=== PATIENT | female | born 1980 ===

== ENCOUNTER 2023-12-04 14:40 | Emergency (ER) | payer SELFPAY ==
[2023-12-04 14:46] VITALS: BP 103/66; PULSE 83; RESP 17; TEMP 36.7; O2SAT 99; BMI 38.0
--- NOTE | 2023-12-04 14:52 | ECG_ITS ---
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 Measurements Intervals [place] Rate: 78 P: 60 NE: 183 QRS: -17 QRSD: 112 T: 76 QT: 392 QTc: 447 Interpretive Statements SINUS RHYTHM LEFT VENTRICULAR HYPERTROPHY AND ST-T CHANGE [VOLTAGE CRITERIA PLUS ST/T ABNORMALITY] No previous ECG available for comparison Electronically Signed On 12-05-2023 7:57:33 CDT by Edmundo Tafoya M.D. [id number]
[2023-12-04 15:32] VITALS: BP 119/86; PULSE 71; O2SAT 98
--- NOTE | 2023-12-04 15:34 | ED_ITS ---
HPI - Dizziness 2 General: Chief Complaint: Dizziness Stated Complaint: fainted Time Seen by Provider: 12/04/23 15:32 History of Present Illness: HPI Narrative: 43-year-old female presents emergency ro om with complaints of [place]. She is Faroese-speaking only initially her daughter translated for us so that we could expedite evaluation we did go back and use the translation service to confirm history and review. Patient [place] she went to [place] up and got lightheaded dizzy her vision blurred after just a few seconds she felt like she may have lost consciousness. Family was nearby and splashed her with water and alcoholic drinks. Patient denies that she was drinking. She has no known history of coronary artery disease she is not diabetic. She does have a murmur and was referred by her physician for an echocardiogram which is upcoming but has not yet been completed. She felt hot and flushed had some blurring of her vision but never had any chest pain she was very briefly short of breath but that has resolved. No recent illness no fever sweats or chills no history of DVT or PE in the past. Associated symptoms: Denies chest pain or chills Review of Systems 2 Const: Denies: fever(s) or chills Card: Denies: chest pain Resp: Denies: dyspnea GI: Denies: abdominal pain : Denies: dysuria, urinary frequency or urinary urgency Musc: Denies: neck pain or back pain Skin/Breast: Denies: rash Physical Exam 2 Const: COMMON NORMALS: no acute distress GENERAL APPEARANCE: cooperative and comfortable ORIENTATION/CONSCIOUSNESS: Yes awake, Yes oriented to person, Yes oriented to place and Yes oriented to time HENMT: COMMON NORMALS: normocephalic, atraumatic and hearing grossly normal bilaterally HEAD & SCALP: normocephalic and atraumatic Resp: COMMON NORMALS: normal respiratory effort, No retractions, No use of accessory muscles and clear to auscultation bilaterally AUSCULTATION: clear to auscultation bilaterally Cardio: COMMON NORMALS: regular rate and regular rhythm RATE: regular rate RHYTHM: regular rhythm HEART SOUNDS: Murmur heart sound present (Grade 4/6 systolic murmur) GI: COMMON NORMALS: Soft to palpation and No hepatosplenomegaly present A USCULTATION: Yes normoactive bowel sounds PALPATION: Yes Soft to palpation, No Tenderness to palpation present (GI), No Guarding due to palpation present (GI) and Yes No hepatosplenomegaly present Extremity: COMMON NORMALS: normal to inspection, capillary refill normal, no clubbing, cyanosis or edema, no calf tenderness and no pedal edema Neuro: SENSORIUM/ORIENTATION: Yes oriented to person, Yes oriented to place and Yes oriented to time Skin: COMMON NORMALS: no rashes or lesions noted GENERAL SKIN EXAM: no rashes or lesions noted Course 2 Vital Signs: Vital signs: Vital Signs Temperature 98.1 F 12/04/23 14:46 Pulse Rate 72 12/04/23 18:23 Respiratory Rate 17 12/04/23 14:46 Blood Pressure 123/69 12/04/23 18:23 Pulse Oximetry 99 12/04/23 18:23 Oxygen Delivery Me thod Room Air 12/04/23 18:12 MDM - Dizziness Medical Decision Making Cardiac enzymes are negative. EKG did not show any acute changes patient is a very impressive murmur on auscultation. Initially she was mildly orthostatic this improved with IV fluids and she is feeling much better. Will discharge patient home. I think her episode is precipitated by volume depletion from being in the sun as well as exacerbated further by anemia and possibly by her murmur suspect from its location sounds and timing that she may have some aortic stenosis. With volume loss this may have increased the likelihood of orthostatic hypotension. It is resolved now that she has had fluids replaced. Avoid heat increase fluid intake follow-up with her primary care physician. She is from [place] and will be returning there soon. Medical Records I reviewed the patient's medical records. Lab Data I reviewed the patient's lab results. 12/04/23 15:48 12/04/23 15:48 Laboratory Results WBC 9.05 10^3/uL (3.29-11.43) 12/04/23 15:48 RBC 3.77 10^6/uL (3.85-5.65) L 12/04/23 15:48 Hgb 9.10 g/dL (11.27-16.99) L 12/04/23 15:48 Hct 29.4 % (36-47) L 12/04/23 15:48 MCV 78.0 fl (85-98) L 12/04/23 15:48 MCH 24.1 pg (27-33) L 12/04/23 15:48 MCHC 31.0 g/dL (30-55) 12/04/23 15:48 RDW 17.8 % (12.1-15.1) H 12/04/23 15:48 Plt Count 257 10^3/cmm (157-399) 12/04/23 15:48 MPV 9.9 fL (7.4-10.4) 12/04/23 15:48 Neut % (Auto) 68.3 % 12/04/23 15:48 Lymph % (Auto) 22.9 % 12/04/23 15:48 [place] % (Auto) 6.3 % 12/04/23 15:48 Eos % (Auto) 1.9 % 12/04/23 15:48 Baso % (Auto) 0.2 % 12/04/23 15:48 Neut # (Auto) 6.18 10^3/uL (1.8-7.7) 12/04/23 15:48 Lymph # (Auto) 2.1 10^3/uL (0.8-4.8) 12/04/23 15:48 [place] # (Auto) 0.6 10^3/uL (0.2-0.9) 12/04/23 15:48 Eos # (Auto) 0.2 10^3/uL (0.0-0.8) 12/04/23 15:48 Baso # (Auto) 0.0 10^3/uL (0.0-0.1) 12/04/23 15:48 Nucleated RBC % (auto) 0 % 12/04/23 15:48 Nucleated RBCs # 0.0 /100WBC 12/04/23 15:48 Sodium 139 mmol/L (136-145) 12/04/23 15:48 Potassium 3.6 mmol/L (3.5-5.1) 12/04/23 15:48 Chloride 101 mmol/L (98-107) 12/04/23 15:48 Carbon Dioxide 26 mmol/L (22-29) 12/04/23 15:48 Anion Gap 15.6 (5-19) 12/04/23 15:48 BUN 13 mg/dL (6-20) 12/04/23 15:48 Creatinine 0.7 mg/dL (0.5-0.9) 12/04/23 15:48 GFR Calculation 90.5 mL/min (90-130) 12/04/23 15:48 Glucose 91 mg/dL (65-115) 12/04/23 15:48 Calculated Osmolality 288 mOsm/kg (285-295) 12/04/23 15:48 Calcium 9.4 mg/dL (8.5-10.5) 12/04/23 15:48 Total Bilirubin 0.2 mg/dL (0.15-1.2) 12/04/23 15:48 AST 12 U/L (0-32) 12/04/23 15:48 ALT 11 U/L (0-33) 12/04/23 15:48 Alkaline Phosphatase 107 U/L (35-105) H 12/04/23 15:48 Troponin T Baseline 9 ng/L (0-10) 12/04/23 15:48 Troponin T 120 Minute 6.70 ng/L (0-10) 12/04/23 17:44 Delta Troponin T -2.30 ABS# (0-10) L 12/04/23 17:44 Total Protein 7.7 g/dL (6.6-8.7) 12/04/23 15:48 Albumin 4.3 g/dL (3.5-5.2) 12/04/23 15:48 Globulin 3.4 g/dL (1.3-4.6) 12/04/23 15:48 Urine Color Yellow (Yellow) 12/04/23 15:48 Urine Appearance Clear (CLEAR) 12/04/23 15:48 Urine pH 6.0 (5-7) 12/04/23 15:48 Ur Specific [place] 1.020 (1.005-1.030) 12/04/23 15:48 Urine Protein 1+ (Negative) A 12/04/23 15:48 Urine Glucose (UA) Negative (Normal) 12/04/23 15:48 Urine Ketones Negative (Negative) 12/04/23 15:48 Urine Blood 2+ (Negative) A 12/04/23 15:48 Urine Nitrate Negative (Negative) 12/04/23 15:48 Urine Bilirubin Negative (Negative) 12/04/23 15:48 Urine Urobilinogen 1.0 mg/dL (Negative) 12/04/23 15:48 Ur Leukocyte Esterase Negative (Negative) 12/04/23 15:48 Urine RBC 6-10 /hpf (0-2) 12/04/23 15:48 Urine WBC 0-5 /hpf (0-5) 12/04/23 15:48 Ur Squamous Epith Cells 0-5 /hpf (0-5) 12/04/23 15:48 Amorphous Sediment Not Reportable 12/04/23 15:48 Urine Bacteria None seen /hpf (NONE) 12/04/23 15:48 Hyaline Casts 16.53 /lpf 12/04/23 15:48 All radiology interpretation(s) finalized by discharge Discharge Plan Discharge Patient Disposition: Home Clinical Impression: Syncope, Anemia, Heart murmur, systolic Condition: Stable Discharge Orders: Discharge ED (Routine); Ordered 12/04/23 Ordered By: Darrell Hobbs Discharge Diet: Usual diet Discharge Activity: Limit activity as instructed Patient Instructions: Opioid Safety, Pain Management Activity Restrictions/Additional Instructions: Thank you for choosing [facility] for your healthcare needs today. It is very important that you follow up as instructed or that you return to the Emergency Department should you have concerns or if your condition changes or worsens in any way. You are seen in the emergency room after an episode of passing out. Based on your labs and the vital signs that we did in the emergency room it appears this is due to syncopal episode from loss of fluid. This is when your blood pressure drops with activity. Blood pressure improved after IV fluids were given. Also noted you are moderately anemic. He should follow-up with your primary care doctor as you had scheduled for the ultrasound of the heart. He can also follow-up on your anemia. Avoid exertional activities increase fluid intake Coding Level of Care Code ED Watch And Clock Maker And Repairer for Miguel Jc
[2023-12-04 15:35] VITALS: BP 104/63; BP 120/72; BP 99/58; PULSE 71; PULSE 87; PULSE 93
[2023-12-04] MEDS: sodium chloride 0.9% 1,000 ML 999 ML IV (15:49)
[2023-12-04 15:56] LABS: Basophils % 0.2 %; Eosinophils # 0.2 10^3/uL (0.0-0.8); Eosinophils % 1.9 %; Hematocrit 29.4 % (36-47); Lymphocytes # 2.1 10^3/uL (0.8-4.8); Lymphocytes % 22.9 %; Mean Corpuscular Hemoglobin 24.1 pg (27-33); Mean Platelet Volume 9.9 fL (7.4-10.4); Monocytes # 0.6 10^3/uL (0.2-0.9); Monocytes % 6.3 %; Neutrophils # 6.18 10^3/uL (1.8-7.7); Neutrophils % 68.3 %; Nucleated Red Blood Cells % 0 %; Platelet Count 257 10^3/cmm (157-399); Red Blood Count 3.77 10^6/uL (3.85-5.65); Red Cell Distribution Width 17.8 % (12.1-15.1); White Blood Count 9.05 10^3/uL (3.29-11.43)
[2023-12-04 16:04] LABS: Charge for UA Resulting for Rev
[2023-12-04 16:07] LABS: Bilirubin Urine Negative (Negative); Blood Urine 2+ (Negative); Glucose Urine UA Negative (Normal); Ketones Urine Negative (Negative); Leukocyte Esterase Urine Negative (Negative); Nitrate Urine Negative (Negative); Protein Urine 1+ (Negative); Urine Appearance Clear (CLEAR); Urine Color Yellow (Yellow)
[2023-12-04 16:12] LABS: Bacteria Urine None Seen /hpf; Squamous Epithelial Cell Urine 0-5 /hpf (0-5); WBC Urine 0-5 /hpf (0-5)
[2023-12-04 16:17] LABS: Alanine Aminotransferase 11 U/L (0-33); Albumin Level 4.3 g/dL (3.5-5.2); Alkaline Phosphatase 107 U/L (35-105); Anion Gap 15.6 (5-19); Aspartate Amino Transferase 12 U/L (0-32); Blood Urea Nitrogen 13 mg/dL (6-20); Calcium 9.4 mg/dL (8.5-10.5); Carbon Dioxide 26 mmol/L (22-29); Chloride 101 mmol/L (98-107); Creatinine Clr Calc Pharmacy 108.6261; Globulin 3.4 g/dL (1.3-4.6); Glomerular Filtration Rate 90.5 mL/min (90-130); Glucose 91 mg/dL (65-115); Osmolality Calculated 288 mOsm/kg (285-295); Potassium 3.6 mmol/L (3.5-5.1); Sodium 139 mmol/L (136-145); Total Bilirubin 0.2 mg/dL (0.15-1.2); Total Protein 7.7 g/dL (6.6-8.7)
[2023-12-04 16:18] LABS: Troponin(5th) Baseline 9 ng/L (0-10)
[2023-12-04 16:58] LABS: Hyaline Casts Urine 16.53 /lpf
[2023-12-04] MEDS: sodium chloride 0.9% 500 ML 999 ML IV (17:14)
[2023-12-04 17:16] VITALS: BP 132/81; PULSE 74; O2SAT 100
--- NOTE | 2023-12-04 17:42 | ECG_ITS ---
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 Measurements Intervals [place] Rate: 75 P: 59 MD: 187 QRS: -20 QRSD: 105 T: 85 QT: 399 QTc: 446 Interpretive Statements SINUS RHYTHM LEFT VENTRICULAR HYPERTROPHY AND ST-T CHANGE [VOLTAGE CRITERIA PLUS ST/T ABNORMALITY] Compared to ECG 12/04/2023 14:52:30 No significant changes Electronically Signed On 12-05-2023 8:00:23 CDT by Edmundo Tafoya M.D. [id number]
[2023-12-04 18:12] VITALS: BP 123/69; PULSE 72; O2SAT 99
[2023-12-04 18:23] VITALS: BP 123/69; PULSE 72; O2SAT 99
== END 2023-12-04 18:23 | disposition home or self-care (01) ==
PROVIDERS: Emergency Provider Family Medicine
DX: R55 Syncope and collapse (principal); D64.9 Anemia, unspecified; R01.1 Cardiac murmur, unspecified
CPT/HCPCS: 80053; 81003; 81015; 84484; 85025; 93005; 96360; 99284; J7030; J7040